=== PATIENT | male | born 1990 | race Caucasian/White ===

== ENCOUNTER 2020-12-15 13:53 | Emergency (ER) | payer OTHER ==
[2020-12-15 14:03] VITALS: BP 131/78; PULSE 93; RESP 18; TEMP 98.5
[2020-12-15] MEDS ORDERED: DIPH,PERTUS(ACELL)TETVAC-LF 0.5 ML VIAL IM ONE (15:14)
--- NOTE | 2020-12-15 15:23 | ED ---
General Adult HPI - General Chief complaint: Extremity Injury, Upper Stated complaint: [facility] L hand injury Time Seen by Provider: 12/15/20 14:58 Source: patient Mode of arrival: ambulatory Limitations: no limitations - History of Present Illness Initial comments: Dictation was produced using [employer] dictation software. please excuse any grammatical, word or spelling errors. Chief Complaint: 30-year-old male presents with crush injury to the left hand History of Present Illness: Jaycob is a 30-year-old male who presents to crush injury to the left hand. 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 He finished the rest of his shift. We will go this morning with some pain and some bruising to these left fingertips. Patient states that he still has function to his hand. Denies any numbness and paresthesias. States it happened around 3 PM yesterday. Unknown time of last tetanus. The ROS documented in this emergency department record has been reviewed and confirmed by me. Those systems with pertinent positive or negative responses have been documented in the HPI. All other systems are other negative and/or noncontributory. PHYSICAL EXAM: General Impression: Alert and oriented x3, not in acute distress HEENT: Normocephalic atraumatic, extra-ocular movements intact, pupils equal and reactive to light bilaterally, mucous membranes moist. Cardiovascular: Heart regular rate and rhythm Chest: Able to complete full sentences, no retractions, no tachypnea Abdomen: abdomen soft, non-tender, non-distended, no organomegaly Musculoskeletal: Pulses present and equal in all extremities, no peripheral edema Motor: no focal deficits noted Neurological: CN II-XII grossly intact, no focal motor or sensory deficits noted Skin: Intact with no visualized rashes Psych: Normal affect and mood Left hand: Ecchymoses to the distal fingertips mostly concentrated to the left second through fourth digit. Intact nail bed and nail ED course: 30-year-old male suffered a crush injury 3 PM yesterday. Vital signs upon arrival are within acceptable limits. X-ray of the hand shows comminuted tuft fractures of the distal phalanx of the middle finger and ring finger. No significant displacement. Patient reevaluated at bedside found to be stable medical condition. She placed in finger splint. He is told to keep the fingers immobilized for several weeks and does pain starts improved. He is given prescription for K eflex for infection prophylaxis. given referral to hand specialist. - Related Data Previous Rx's Medication Instructions Recorded Cephalexin [Keflex] 500 mg PO Q6HR 5 Days #20 cap 12/15/20 Allergies Allergy/AdvReac Type Severity Reaction Status Date / Time No Known Allergies Allergy Verified 12/15/20 14:02 Review of Systems ROS Statement: Those systems with pertinent positive or pertinent negative responses have been documented in the HPI. ROS Other: All systems not noted in ROS Statement are negative. Past Medical History Past Medical History: No Reported History History of Any Multi-Drug Resistant Organisms: None Reported Past Surgical History: No Surgical Hx Reported Past Psychological History: No Psychological Hx Reported Smoking Status: Current some day smoker Past Alcohol Use History: None Reported Past Drug Use History: Marijuana General Exam Limitations: no limitations Course Vital Signs 12/15/20 14:00 Temperature 98.5 F Pulse Rate 93 Respiratory 18 Rate Blood Pressure 131/78 O2 Sat by Pulse 97 Oximetry Disposition Clinical Impression: Finger fracture Disposition: HOME SELF-CARE Condition: Fair Instructions (If sedation given, give patient instructions): Hand Fracture (ED) Additional Instructions: Follow-up with orthopedic surgery for outpatient follow-up of hand fracture. Keep fingers immobilized for the time being. Takes several weeks for bone fractures to heal. Seek medical attention if you have worsening pain, redness or discharge to the injured area. Prescriptions: Cephalexin [Keflex] 500 mg PO Q6HR 5 Days #20 cap Is patient prescribed a controlled substance at d/c from ED?: No Referrals: Cameron Bradley DO [Doctor of Osteopathic Medicine] - 1-2 days
--- NOTE | 2020-12-15 15:57 | XR ---
EXAMINATION TYPE: XR hand complete LT DATE OF EXAM: 12/15/2020 COMPARISON: NONE HISTORY: Crush injury. Pain. TECHNIQUE: 4 views FINDINGS: There are comminuted fractures of the tuft of the distal phalanx of the middle finger and t he ring finger. There is no significant displacement. There is no dislocation. Joint spaces are jaspal l. IMPRESSION: Comminuted tuft fractures.
== END 2020-12-15 16:53 | disposition home or self-care (01) ==
LOC: EC 13:53
DX: S62.633A Displaced fracture of distal phalanx of left middle finger, initial encounter for closed fracture (principal); S62.635A Displaced fracture of distal phalanx of left ring finger, initial encounter for closed fracture; F12.90 Cannabis use, unspecified, uncomplicated; F17.200 Nicotine dependence, unspecified, uncomplicated; W23.0XXA Caught, crushed, jammed, or pinched between moving objects, initial encounter
CPT/HCPCS: 90471; 90715; 99283